=== PATIENT | male | born 1975 | race Caucasian/White ===

== ENCOUNTER 2025-02-06 21:37 | Emergency (ER) | payer BC ==
[2025-02-06] MEDS: Lidocaine 1% 10 ML MDV INJECT ONE (22:07)
== END 2025-02-06 22:30 | disposition home or self-care (01) ==
LOC: JD.ED 21:37
DX: S61.012A Laceration without foreign body of left thumb without damage to nail, initial encounter (principal); Z88.0 Allergy status to penicillin; Z88.1 Allergy status to other antibiotic agents; Z88.2 Allergy status to sulfonamides; Z88.8 Allergy status to other drugs, medicaments and biological substances; Z79.899 Other long term (current) drug therapy; W26.0XXA Contact with knife, initial encounter
CPT/HCPCS: 12001; 99282; J2003